=== PATIENT | male | born 1965 | race Caucasian/White ===

== ENCOUNTER → 2021-06-06 | Day surgery (SDC) | payer BC ==
[~2021-06-06] MED LIST: CELEBREX200 MG PO; CIMZIA400 MG/2 M INJ; COLACE100 MG PO; CYCLOBENZAPRINE5 MG PO; ENBREL50 MG/1 ML IM; EXCEDRIN PO; FLONASE SPRAY; HYDROCODON-ACE1 EAC2 PO; MOTRIN IB200 MG PO; PREDNISONE10 MG PO; VITAMIN D32000 UNI1 PO
== END | disposition home or self-care (01) ==
LOC: OR 05:31
DX: K42.9 Umbilical hernia without obstruction or gangrene (principal); M54.5 Low back pain; G89.29 Other chronic pain; F32.9 Major depressive disorder, single episode, unspecified; K21.9 Gastro-esophageal reflux disease without esophagitis; I10 Essential (primary) hypertension; E78.5 Hyperlipidemia, unspecified; G47.33 Obstructive sleep apnea (adult) (pediatric); M06.9 Rheumatoid arthritis, unspecified; Z20.822 Contact with and (suspected) exposure to COVID-19; M81.0 Age-related osteoporosis without current pathological fracture; Z87.891 Personal history of nicotine dependence
CPT/HCPCS: C1781; J0690; J2001; J2250; J2704; J2710; J3010; J7120

== ENCOUNTER 2022-05-26 10:02 | Emergency (ER) | payer BC ==
[2022-05-26 10:56] LABS: RED BLOOD COUNT 5.9 M/UL (4.20-5.50); WHITE BLOOD COUNT 11.6 K/UL (4.5-11.0)
[2022-05-26 11:18] LABS: BUN/CREATININE RATIO 11 (0-10)
[2022-05-26] MEDS ORDERED: FLORASTOR250 MG PO (13:29)
[2022-05-26] MEDS ORDERED: ZOFRAN 4 MG TAB4 MG PO (13:29)
[2022-05-26] MEDS ORDERED: BENTYL 20MG TAB20 MG PO (13:29)
== END 2022-05-26 13:44 | disposition home or self-care (01) ==
LOC: ER1 10:02
DX: R10.84 Generalized abdominal pain (principal); R11.2 Nausea with vomiting, unspecified; R19.7 Diarrhea, unspecified; Z20.822 Contact with and (suspected) exposure to COVID-19; Z87.891 Personal history of nicotine dependence
CPT/HCPCS: 0240U; 71045; 80053; 81001; 82550; 82553; 83690; 84484; 85025; 93005; 99284